=== PATIENT | female | born 1960 | race Caucasian/White ===

== ENCOUNTER 2018-04-16 17:36 | Emergency (ER) | payer MEDICAID, SELFPAY ==
[2018-04-16 17:37] VITALS: BP 169/94; PULSE 119; RESP 17; TEMP 37.4; O2SAT 96; BMI 32.2
--- NOTE | 2018-04-16 17:58 | ED.VISSUMM ---
- ER Visit Summary Date of Service: 04/16/18 Chief Complaint: Cough, body aches History of Present Illness: The patient is a 57 F presenting with cough, body aches. She states that this started 2 days ago. She has had a nonproductive cough. She has subjective fever and chills. She complains of diffuse myalgias. She has a headache which was gradual in onset, similar to previous headaches. She did not receive a flu shot this year. She complains of sore throat and painful swallowing. No difficulty swallowing. No sick contacts. Denies other complaints. Physical Examination: Vitals are stable. Temperature 99.4. Patient is afebrile. Alert no acute distress. HEENT exam mild pharyngeal erythema with no exudate, uvula is midline Neck is supple. No meningismus Lungs are clear and equal bilaterally. Heart is regular and tachycardic Abdomen is soft nontender nondistended. Extremities are unremarkable. Skin is warm and dry. No rash No focal neurologic deficit. Remainder of exam is unremarkable. Emergency Department Course and Treatment: Patient was given Tylenol, Decadron. Her painful swallowing has improved. She continues to have headache. She was given IV fluids, Reglan, Benadryl. She now feels improved. Repeat heart rate is 90. Pulse ox is 98% on room air. She is given prescription for Tessalon Perles. 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 Advised return to ED if worsening complaints. Disposition: Discharge home Impression: Bronchitis This note was generated with [employer] dictation software. It may contain incorrect words, spelling, and punctuation that were not noted in review of the chart prior to signing ED Disposition - Plan for ED Patient: Chief Complaint: Cold Sx Instructions: ED Upper Resp Infec No Abx Tx Prescriptions: Benzonatate [Tessalon Perle] 200 mg PO TID PRN PRN #20 capsule PRN Reason: Cough Referrals: Uzair Cohn MD [STAFF PHYSICIAN] -
[2018-04-16] MEDS: Acetaminophen 500 MG Tablet 1000 MG PO (18:16)
--- NOTE | 2018-04-16 18:25 | RAD_ITS ---
STUDY: X-RAY CHEST REASON FOR EXAM: Female, 57 years old. Cold symptoms. TECHNIQUE: PA and lateral chest. COMPARISON: None. FINDINGS: The lungs are clear and expanded. There is no demonstrated pleural abnormality. Normal size heart. Normal mediastinum and james. Normal visualized pulmonary arteries. Normal visualized aortic arch and descending thoracic aorta. There is a mild thoracic dextroscoliosis. Soft tissues and bony structures are otherwise unremarkable. RAD/Chest PA and Lateral IMPRESSION: No acute process. Electronically Signed: Rae Gagnon MD at 18:41 EST Tel , Service support ,
[2018-04-16] MEDS: Metoclopramide 10 MG/2 ML Vial 5 MG IV (19:33)
[2018-04-16] MEDS: 0.9% Normal Saline 1,000 ML 999 ML IV ×2 (19:33)
[2018-04-16] MEDS: DiphenhydrAMINE 50 MG/ML Syringe 25 MG IV (19:33)
[2018-04-16 19:38] VITALS: BP 144/81; PULSE 95; RESP 20; O2SAT 98
--- NOTE | 2018-04-16 20:30 | ED.DEP ---
ED Disposition - Plan for ED Patient: Chief Complaint: Cold Sx Instructions: ED Upper Resp Infec No Abx Tx Prescriptions: Benzonatate [Tessalon Perle] 200 mg PO TID PRN PRN #20 capsule PRN Reason: Cough Referrals: Uzair Cohn MD [STAFF PHYSICIAN] -
[2018-04-16 20:52] VITALS: BP 144/83; PULSE 72; RESP 22; O2SAT 99
--- NOTE | 2018-04-16 20:52 | ED.RN ---
THIS NURSE REVIEWED D/C INSTRUCTIONS WITH PT. PT VERBALIZED UNDERSTANDING OF INSTRUCTIONS. IV D/C. IV CATHETER INTACT. PT TOLERATED WELL. PT DENIES FURTHER NEEDS OR QUESTIONS AT THIS TIME.
== END 2018-04-16 20:53 | disposition home or self-care (01) ==
PROVIDERS: Emergency Provider Emergency Medicine
DX: J40 Bronchitis, not specified as acute or chronic (principal); Z72.0 Tobacco use; Z85.3 Personal history of malignant neoplasm of breast
CPT/HCPCS: 71046; 87804; 96361; 96374; 96375; 99283; J7030; A4216